=== PATIENT | female | born 1935 | race Caucasian/White ===

== ENCOUNTER 2016-09-13 21:56 | Emergency (ER) | payer MEDICARE, OTHER ==
--- NOTE | 2016-09-14 05:36 | CT ---
HEAD W/O CON History: Ground level fall. Comparison: 09/23/2015. Procedure: 1 mm axial images were obtained through the head from the vertex to the base of the skull without intravenous contrast. Stacked reconstructed 5 mm images were then obtained in the axial, coronal and sagittal planes. Findings: The lateral ventricles are mildly prominent. No evidence of midline shift is seen. No mass or mass effect is identified. No evidence of intra or extra-axial fluid collections or hemorrhage is seen. There are periventricular deep white matter low-attenuation changes observed. 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 The basilar cisterns are uneffaced. The posterior fossa structures are unremarkable. Bone windows demonstrate no acute osseous abnormalities. Impression: 1. No findings of acute intracranial hemorrhage. 2. 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 3. Mild cerebral atrophy. 4. Periventricular deep white matter low-attenuation changes most consistent with small vessel ischemia considering patient age. The findings were called to the emergency room at 2357 hours, 09/13/2016, by [facility].
--- NOTE | 2016-09-14 06:05 | RAD ---
WRIST- LEFT 3 VIEWS HISTORY: Ground level fall. COMPARISONS: 03/29/2015. FINDINGS: 3 views of the left wrist were performed demonstrating diffuse bony osteopenia. The visualized osseous structures appear to remain intact. There is significant osteoarthritic changes noted of the first carpometacarpal articulation with joint space loss, sclerosis and productive changes. Slight widening of the scapholunate distance is observed. The carpal alignment is otherwise intact. Atherosclerotic vascular calcification is noted. IMPRESSION: 1. Severe diffuse bony osteopenia. 2. No definitive fracture visualized. 3. 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 4. Mild widening of the scapholunate distance suggesting a tear or perforation of the scapholunate ligament. 5. Atherosclerotic vascular calcification.
--- NOTE | 2016-09-14 06:19 | CT ---
C-SPINE W/O CON History: Ground level fall. Procedure: 1 mm axial images were obtained through the cervical spine from the base of the skull to T1 with stacked reconstructed 2 mm images photographed in the axial, coronal and sagittal planes. Comparison: 02/13/2014. Findings: The osseous structures are intact without evidence of a discrete fracture. The alignment is normal. No significant subluxation is visualized. The facets align appropriately without evidence of a perched or jumped facet. The spinous processes appear to be intact. No prevertebral soft tissue swelling is observed. The pre-dens space is not widened. The odontoid process is intact. There are multilevel spondylosis changes noted with uncinate processes appear to be. Atherosclerotic calcification is noted within the region of both carotid bulbs. The thyroid gland is not well-visualized. Scans to the upper lung apices demonstrate some thickening of the interlobular septa which may reflect scarring or edema. The central airways appear to be clear. Impression: 1. No discrete fracture or significant subluxation visualized. 2. Multilevel cervical spondylosis changes and uncinate process hypertrophy. 3. Atherosclerotic calcification within the region of both carotid bulbs. 4. Nonvisualization of the thyroid gland. 5. Thickening of the apical interlobular septa which may reflect findings of pulmonary edema or fibrosis. The findings were called to the emergency room at 2357 hours, 09/13/2016, by [facility].
--- NOTE | 2016-09-14 06:31 | CT ---
T-SPINE W/O CON, L-SPINE W/O CON History: Ground-level fall. Comparison: None. Procedure: 1 mm axial images were obtained through the thoracic and lumbar spine without oral or intravenous contrast. Stacked reconstructed 3 mm images were then photographed in the axial, coronal and sagittal planes. Findings: Images demonstrate prominent multilevel thoracic and lumbar degenerative changes with disc height loss and anterior osteophyte formation. There is vacuum disc phenomenon seen at L2-3, L3-4 and L4-5. Slight anterolisthesis of L4 on L5 is also noted. There is facet hypertrophy also identified, particularly evident involving the lumbar levels. No significant compression deformity is seen. The spinous processes appear to be intact. There is the suggestion of central canal stenosis at the L4-5 level and to a lesser extent the L3-4 level. There are patchy airspace consolidative changes identified within both lungs with thickening of the interlobular septa. The appearance is nonspecific and may reflect edema, fibrosis, infection or aspiration. No effusion is seen. Impression: 1. No significant thoracic or lumbar compression deformity visualized. 2. Multilevel thoracic and lumbar degenerative changes with disc height loss and osteophyte formation. 3. Anterolisthesis of L4 on L5 with the suggestion of central canal stenosis at L4-5 and to a lesser extent L3-4. 4. Atherosclerotic calcification of the visualized aorta. 5. Intralobular septal thickening within the visualized lung parenchyma with scattered patchy areas of airspace consolidation. The findings are nonspecific and may reflect infection, edema, aspiration or less likely contusion or multifocal pulmonary masses. No effusion or pneumothorax is visualized. The findings were called to the emergency room at 0007 hours, 09/13/2016, by [facility].
== END 2016-09-14 00:47 | disposition home or self-care (01) ==
LOC: ED 21:56
DX: S16.1XXA Strain of muscle, fascia and tendon at neck level, initial encounter (principal); M25.532 Pain in left wrist; M54.9 Dorsalgia, unspecified; G31.9 Degenerative disease of nervous system, unspecified; Y92.9 Unspecified place or not applicable; W01.0XXA Fall on same level from slipping, tripping and stumbling without subsequent striking against object, initial encounter; Y93.01 Activity, walking, marching and hiking

== ENCOUNTER 2016-12-21 11:14 | Emergency (ER) | payer MEDICARE, OTHER ==
[2016-12-21] MEDS ORDERED: TRAMADOL HCL 50 MG TABLET ONE (12:10)
--- NOTE | 2016-12-21 13:04 | RAD ---
HIP - LEFT 2 VW + AP PELVIS COMPARISON: Pelvis and left hip, 09/23/2015 HISTORY: Chronic pain. FINDINGS: Views: AP pelvis. Left hip AP and frog-leg. Bones: Normal mineralization. No fracture or bone destruction. Joints: Normal his. Sclerosis and narrowing at the symphysis pubis. Sclerosis of both sacral like joints. Lower lumbar spine: Severe disc narrowing and osteophytes. Soft tissues: Vascular calcification. IMPRESSION: 1. No acute finding of the pelvis and left hip. 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 2. Lower lumbar spine severe spondylosis. 3. Atherosclerosis of the aorta and arteries in the pelvis and thighs.
--- NOTE | 2016-12-21 13:05 | RAD ---
KNEE- LEFT 4 OR MORE VIEWS COMPARISON: Left knee 4 views, 06/04/2013 HISTORY: Chronic pain of the left knee status post left total knee arthroplasty. FINDINGS: Views: Left knee AP, external rotation, internal rotation, and lateral Alignment: Normal. Bones: Normal. Joints: Satisfactory appearance of the left total knee arthroplasty. Soft tissues: No acute finding. Vascular calcification. IMPRESSION: 1. Satisfactory appearance of the left total knee arthroplasty. 2. Atherosclerosis.
== END 2016-12-21 13:42 | disposition home or self-care (01) ==
LOC: ED 11:14
DX: M25.552 Pain in left hip (principal); M25.562 Pain in left knee; I10 Essential (primary) hypertension; J45.909 Unspecified asthma, uncomplicated; Z86.718 Personal history of other venous thrombosis and embolism; Z79.01 Long term (current) use of anticoagulants
CPT/HCPCS: 73502; 73564; 99283 ×2; A9270